=== PATIENT | male | born 1940 | race Caucasian/White ===

== ENCOUNTER 2020-08-21 01:30 | Inpatient (IN) | payer MEDICARE, BC ==
[2020-08-21] MEDS ORDERED: Sodium Chloride 0.9% 10 ML Syringe FLUSH PRN (02:17)
[2020-08-21] MEDS ORDERED: Sodium Chloride 0.9% 1,000 ML IV ONE (02:31)
--- NOTE | 2020-08-21 02:34 | EDM.PDOC ---
ED HPI GENERAL MEDICAL PROBLEM - General Chief Complaint: General Stated Complaint: fever, chills Time Seen by Provider: 08/21/20 02:22 Source of Information: Reports: Patient, [facility] Records History Limitations: Reports: No Limitations - History of Present Illness INITIAL COMMENTS - FREE TEXT/NARRATIVE: Patient presents [place] via [place] with report of fever and lethargy. Reportedly, the [place] called Dr. Tierney to request Tylenol for a temp of 101 and he said to send to the ER. Patient has completed 2 days of 5-day course of Cefuroxime for a UTI. A Covid test from 2 days ago is still pending. He denies any pain, dyspnea, cough, vomiting. He says he lost urine control during the night. He normally is quick-cathed q6h for voiding. - Related Data Allergies Allergy/AdvReac Type Severity Reaction Status Date / Time measles, mumps, and rubella Allergy Cannot Verified 08/21/20 03:09 vaccine Remember NSAIDS (Non-Steroidal Allergy Cannot Verified 08/21/20 03:09 Anti-Inflamma Remember zoster vaccine live Allergy Cannot Verified 08/21/20 03:09 [From Zostavax (PF)] Remember ED ROS GENERAL - Review of Systems Review Of Systems: See Below Constitutional: Reports: Fever. Denies: Chills, Malaise, Weakness HEENT: Denies: Ear Pain, Throat Pain, Vision Change Respiratory: Denies: Shortness of Breath, Cough Cardiovascular: Denies: Chest Pain, Lightheadedness, Syncope GI/Abdominal: Denies: Abdominal Pain, Nausea, Vomiting : Reports: Incontinence, Urinary Retention. Denies: Dysuria, Flank Pain Musculoskeletal: Denies: Neck Pain, Shoulder Pain, Arm Pain, Back Pain, Hand Pain Skin: Denies: Cyanosis, Jaundice, Mottled, Pallor, Diaphoresis Neurological: Denies: Confusion, Dizziness, Headache, Seizure, Syncope, Trouble Speaking Psychiatric: Denies: Agitation, Anxiety, Confusion ED EXAM, GENERAL - Physical Exam Exam: See Below Exam Limited By: No Limitations General Appearance: Alert, WD/WN, No Apparent Distress Eye Exam: Bilateral Eye: EOMI, Normal Inspection, PERRL Ears: Normal External Exam, Hearing Grossly Normal Nose: Normal Inspection, No Blood Throat/Mouth: Normal Inspection, Normal Voice, No Airway Compromise, Other (lips are dry) Head: Atraumatic, Normocephalic Neck: Normal Inspection, Supple, Non-Tender, Full Range of Motion Respiratory/Chest: No Respiratory Distress, Lungs Clear, Normal Breath Sounds, No Accessory Muscle Use. No: Decreased Breath Sounds, Crackles, Rales, Rhonchi, Wheezing, Stridor Cardiovascular: Normal Peripheral Pulses, Regular Rate, Rhythm, No Murmur Peripheral Pulses: 2+: Carotid (L), Carotid (R), Radial (L), Radial (R) GI/Abdominal: Normal Bowel Sounds, Soft, Non-Tender, No Organomegaly, No Distention Back Exam: Normal Inspection, Full Range of Motion. No: CVA Tenderness (L), CVA Tenderness (R) Extremities: Normal Inspection, Normal Range of Motion, Non-Tender, No Pedal Edema Neurological: Alert (sleepy (it's 2:00 AM) but easily rousable and answers questions appropriately), Oriented, Normal Cognition, No Motor/Sensory Deficits Psychiatric: Normal Affect, Normal Mood Skin Exam: Warm, Dry, Intact, Normal Color, No Rash Course - Vital Signs Last Recorded V/S: Last Vital Signs Temp 101.6 F H 08/21/20 02:29 Pulse 93 08/21/20 01:35 Resp 21 H 08/21/20 01:35 BP 125/67 08/21/20 01:35 Pulse Ox 96 08/21/20 01:35 - Orders/Labs/Meds Orders: Active Orders 24 hr Category Date Time Status Patient Status [ADT] Routine ADT 08/21/20 04:06 Ordered Peripheral IV Care [RC] . DIRECTED Care 08/21/20 02:17 Active CXR [Chest 1V Frontal] [CR] Routine Exams 08/21/20 08:00 Ordered CULTURE BLOOD [BC] Stat Lab 08/21/20 04:03 Ordered CULTURE BLOOD [BC] Stat Lab 08/21/20 04:03 Ordered CULTURE URINE [RM] Stat Lab 08/21/20 03:00 Received LACTIC ACID [CHEM] Stat Lab 08/21/20 04:03 Ordered UA RFX MELVA AND CULT IF INDIC [URIN] Stat Lab 08/21/20 02:16 Ordered Ciprofloxacin in D5W [Cipro in D5W 400 MG/200 ML] 400 Med 08/21/20 04:03 Ordered mg Premix Bag 1 bag IV ONETIME Dextrose 50% in Water Med 08/21/20 04:03 Ordered 50 ml IV ASDIRECTED PRN Glucagon,Human Recombinant [GlucaGen] Med 08/21/20 04:03 Ordered 1 mg IM ASDIRECTED PRN Sodium Chloride 0.9% [Saline Flush] Med 08/21/20 02:17 Active 10 ml FLUSH Q8HR PRN Blood Culture x2 Reflex Set [OM.PC] Stat Ot 08/21/20 04:03 Ordered Peripheral IV Insertion Adult [OM.PC] Routine Ot 08/21/20 02:17 Ordered Medication Orders Dextrose/Water (Dextrose 50% In Water) 50 ml IV ASDIRECTED PRN PRN Reason: Hypoglycemia Glucagon (Glucagen) 1 mg IM ASDIRECTED PRN PRN Reason: Hypoglycemia Ciprofloxacin/Dextrose 400 mg/ (Premix) 200 mls @ 200 mls/hr IV ONETIME ONE Stop: 08/21/20 05:02 Sodium Chloride (Saline Flush) 10 ml FLUSH Q8HR PRN PRN Reason: keep vein open Labs: Laboratory Tests 08/21/20 08/21/20 08/21/20 Range/Units 02:12 02:12 03:00 WBC 17.22 H (5.00-10.00) 10^3/uL RBC 3.84 L (4.50-6.00) 10^6/uL Hgb 11.3 L (13.0-17.0) g/dL Hct 33.9 L (40.0-52.0) % MCV 88.3 (82.0-92.0) fL MCH 29.4 (27.0-31.0) pg MCHC 33.3 (32.0-36.0) g/dL RDW 13.7 (11.5-14.5) % Plt Count 249 (150-400) 10^3/uL MPV 8.3 (7.4-10.4) fL Immature Gran % (Auto) 0.8 (0.0-5.0) % Neut % (Auto) 88.4 H (50.0-70.0) % Lymph % (Auto) 5.1 L (20.0-40.0) % [place] % (Auto) 5.6 (2.0-8.0) % Eos % (Auto) 0.0 L (1.0-3.0) % Baso % (Auto) 0.1 (0.0-1.0) % Neut # (Auto) 15.23 H (2.50-7.00) 10^3/uL Lymph # (Auto) 0.88 L (1.00-4.00) 10^3/uL [place] # (Auto) 0.96 H (0.10-0.80) 10^3/uL Eos # (Auto) 0.00 L (0.10-0.30) 10^3/uL Baso # (Auto) 0.01 (0.00-0.10) 10^3/uL Immature Gran # (Auto) 0.14 (0.00-0.50) 10^3/uL Sodium 129 L (136-145) mmol/L Potassium 4.1 (3.3-5.3) mmol/L Chloride 96 L (98-115) mmol/L Carbon Dioxide 25.5 (21.0-32.0) mmol/L Anion Gap 11.6 (5-15) mmol/L BUN 21 (6-25) mg/dL Creatinine 0.68 (0.51-1.17) mg/dL Est Cr Clr Drug Dosing TNP Estimated GFR (MDRD) > 60 mL/min Glucose 272 H (75 - 99) mg/dL Calcium 8.8 (8.7-10.3) mg/dL Total Bilirubin 0.6 (0.2-1.0) mg/dL AST 44 H (15-37) U/L ALT 50 (12-78) U/L Alkaline Phosphatase 160 H (46-116) IU/L Total Protein 6.8 (6.4-8.2) g/dL Albumin 2.29 L (3.00-4.80) g/dL Specimen Type [place] Urine Color Yellow (YELLOW) Urine Appearance Cloudy H (CLEAR) Urine pH 7.5 (5.0-9.0) Ur Specific [place] 1.025 (1.005-1.030) Urine Protein 100 H (NEGATIVE) mg/dL Urine Glucose (UA) 500 H (NEGATIVE) mg/dL Urine Ketones Negative (NEGATIVE) mg/dL Urine Occult Blood Moderate H (NEGATIVE) Urine Nitrite Negative (NEGATIVE) Urine Bilirubin Negative (NEGATIVE) Urine Urobilinogen 0.2 (0.2-1.0) E.U./dL Ur Leukocyte Esterase Small H (NEGATIVE) Urine RBC 0-5 (0-5) /HPF Urine WBC Packed (0-5) /HPF Ur Epithelial Cells Few /LPF Urine Bacteria Many H (NONE TO FEW) /HPF SARS CoV-2 RNA Rapid KEZIA (NEGATIVE) 08/21/20 Range/Units 03:30 WBC (5.00-10.00) 10^3/uL RBC (4.50-6.00) 10^6/uL Hgb (13.0-17.0) g/dL Hct (40.0-52.0) % MCV (82.0-92.0) fL MCH (27.0-31.0) pg MCHC (32.0-36.0) g/dL RDW (11.5-14.5) % Plt Count (150-400) 10^3/uL MPV (7.4-10.4) fL Immature Gran % (Auto) (0.0-5.0) % Neut % (Auto) (50.0-70.0) % Lymph % (Auto) (20.0-40.0) % [place] % (Auto) (2.0-8.0) % Eos % (Auto) (1.0-3.0) % Baso % (Auto) (0.0-1.0) % Neut # (Auto) (2.50-7.00) 10^3/uL Lymph # (Auto) (1.00-4.00) 10^3/uL [place] # (Auto) (0.10-0.80) 10^3/uL Eos # (Auto) (0.10-0.30) 10^3/uL Baso # (Auto) (0.00-0.10) 10^3/uL Immature Gran # (Auto) (0.00-0.50) 10^3/uL Sodium (136-145) mmol/L Potassium (3.3-5.3) mmol/L Chloride (98-115) mmol/L Carbon Dioxide (21.0-32.0) mmol/L Anion Gap (5-15) mmol/L BUN (6-25) mg/dL Creatinine (0.51-1.17) mg/dL Est Cr Clr Drug Dosing Estimated GFR (MDRD) mL/min Glucose (75 - 99) mg/dL Calcium (8.7-10.3) mg/dL Total Bilirubin (0.2-1.0) mg/dL AST (15-37) U/L ALT (12-78) U/L Alkaline Phosphatase (46-116) IU/L Total Protein (6.4-8.2) g/dL Albumin (3.00-4.80) g/dL Specimen Type Urine Color (YELLOW) Urine Appearance (CLEAR) Urine pH (5.0-9.0) Ur Specific [place] (1.005-1.030) Urine Protein (NEGATIVE) mg/dL Urine Glucose (UA) (NEGATIVE) mg/dL Urine Ketones (NEGATIVE) mg/dL Urine Occult Blood (NEGATIVE) Urine Nitrite (NEGATIVE) Urine Bilirubin (NEGATIVE) Urine Urobilinogen (0.2-1.0) E.U./dL Ur Leukocyte Esterase (NEGATIVE) Urine RBC (0-5) /HPF Urine WBC (0-5) /HPF Ur Epithelial Cells /LPF Urine Bacteria (NONE TO FEW) /HPF SARS CoV-2 RNA Rapid KEZIA Negative (NEGATIVE) Meds: Medications Generic Name Dose Route Start Last Admin Trade Name Freq PRN Reason Stop Dose Admin Dextrose/Water 50 ml 08/21/20 04:03 Dextrose 50% In Water IV ASDIRECTED PRN Hypoglycemia Glucagon 1 mg 08/21/20 04:03 Glucagen IM ASDIRECTED PRN Hypoglycemia Ciprofloxacin/Dextrose 400 mg/ 200 mls @ 200 mls/hr 08/21/20 04:03 Premix IV 08/21/20 05:02 ONETIME ONE Sodium Chloride 10 ml 08/21/20 02:17 Saline Flush FLUSH Q8HR PRN keep vein open Discontinued Medications Generic Name Dose Route Start Last Admin Trade Name Freq PRN Reason Stop Dose Admin Sodium Chloride 1,000 mls @ 999 mls/hr 08/21/20 02:31 08/21/20 02:37 Normal Saline IV 08/21/20 03:31 999 mls/hr .BOLUS ONE Administration Insulin Aspart 5 unit 08/21/20 04:03 Novolog SUBCUT 08/21/20 04:04 ONETIME ONE - Re-Assessments/Exams Free Text/Narrative Re-Assessment/Exam: 08/21/20 02:54 WBC is 17 and ANC 15. Will check UA which hadn't done since he already is treating for UTI. 08/21/20 03:26 UA shows UTI and glucosuria. Blood glucose is 272. 08/21/20 04:10 Covid test is negative so we can admit here. Discussed case with Dr. Tierney who accepts for admit. Patient stable. Departure - Departure Time of Disposition: 04:08 Disposition: Admitted As Inpatient 66 Condition: Good Clinical Impression: UTI (urinary tract infection), bacterial, Neutrophilic leukocytosis Fever Qualifiers: Encounter type: initial encounter - Discharge Information Referrals: Mario Anderson MD [Primary Care Provider] - Forms: ED Department Discharge Sepsis Event Note (ED) - Focused Exam Vital Signs: Vital Signs Temp Temp Pulse Resp BP Pulse Ox 08/21/20 02:29 101.6 F H 08/21/20 01:35 98.7 F 93 21 H 125/67 96 - My Orders Last 24 Hours: My Active Orders 08/21/20 02:16 UA RFX MELVA AND CULT IF INDIC [URIN] Stat 08/21/20 02:17 Peripheral IV Care [RC] . DIRECTED Sodium Chloride 0.9% [Saline Flush] 10 ml FLUSH Q8HR PRN Peripheral IV Insertion Adult [OM.PC] Routine 08/21/20 03:00 CULTURE URINE [RM] Stat 08/21/20 04:03 CULTURE BLOOD [BC] Stat CULTURE BLOOD [BC] Stat LACTIC ACID [CHEM] Stat Ciprofloxacin in D5W [Cipro in D5W 400 MG/200 ML] 400 mg Premix Bag 1 bag IV ONETIME Dextrose 50% in Water 50 ml IV ASDIRECTED PRN Glucagon,Human Recombinant [GlucaGen] 1 mg IM ASDIRECTED PRN Blood Culture x2 Reflex Set [OM.PC] Stat 08/21/20 04:06 Patient Status [ADT] Routine 08/21/20 08:00 CXR [Chest 1V Frontal] [CR] Routine - Assessment/Plan Last 24 Hours: My Active Orders 08/21/20 02:16 UA RFX MELVA AND CULT IF INDIC [URIN] Stat 08/21/20 02:17 Peripheral IV Care [RC] . DIRECTED Sodium Chloride 0.9% [Saline Flush] 10 ml FLUSH Q8HR PRN Peripheral IV Insertion Adult [OM.PC] Routine 08/21/20 03:00 CULTURE URINE [RM] Stat 08/21/20 04:03 CULTURE BLOOD [BC] Stat CULTURE BLOOD [BC] Stat LACTIC ACID [CHEM] Stat Ciprofloxacin in D5W [Cipro in D5W 400 MG/200 ML] 400 mg Premix Bag 1 bag IV ONETIME Dextrose 50% in Water 50 ml IV ASDIRECTED PRN Glucagon,Human Recombinant [GlucaGen] 1 mg IM ASDIRECTED PRN Blood Culture x2 Reflex Set [OM.PC] Stat 08/21/20 04:06 Patient Status [ADT] Routine 08/21/20 08:00 CXR [Chest 1V Frontal] [CR] Routine
[2020-08-21 03:02] LABS: ANION GAP 11.6 mmol/L (5-15); CHLORIDE,CL 96 mmol/L (98-115); SODIUM,NA 129 mmol/L (136-145)
[2020-08-21] MEDS ORDERED: Insulin Aspart 100 Units/ML 3 ML Pen SUBCUT ONE ×2 (04:03→06:26)
[2020-08-21] MEDS ORDERED: Ciprofloxacin in D5W 400 MG in Premix Bag 1 BAG IV ONE ×2 (04:03)
[2020-08-21] MEDS ORDERED: Glucagon,Human Recombinant 1 MG Vial IM PRN ×2 (04:03→06:26)
[2020-08-21] MEDS ORDERED: 50% Dextrose in Water 50 ML Syringe IV PRN ×2 (04:03→06:26)
[2020-08-21] MEDS ORDERED: traMADol 50 MG Tab PO PRN ×2 (05:01→08:42)
[2020-08-21] MEDS ORDERED: Sodium Chloride 0.9% 1,000 ML IV SCH (05:15)
[2020-08-21] MEDS ORDERED: Sodium Chloride 0.9% 50 ML IV SCH (05:15)
[2020-08-21] MEDS ORDERED: Non-Formulary Medication 1 Each SUBCUT ONE (05:30)
[2020-08-21] MEDS: Finasteride 5 MG Tab PO SCH (08:05)
[2020-08-21] MEDS: Midodrine 5 MG Tab PO SCH ×2 (08:05→17:18)
--- NOTE | 2020-08-21 08:15 | CR ---
[id number] RAD/RAD Chest PA or AP 1V EXAM: RAD Chest PA or AP 1V INDICATION: FEVER. COMPARISON: None. DISCUSSION: Cardiomediastinal silhouette is normal in size and contour. Small subtle area of opacity projects over the left midlung. Findings nonspecific but in the setting of infection, could represent small area of developing pneumonia. Right lung is clear. Chronic left-sided rib fractures. IMPRESSION: As above. Rodri Martinez MD 08/21/20 0814 Thank you for allowing us to participate in the care of your patient.
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
[2020-08-21] MEDS ORDERED: Docusate Sodium 100 MG Cap PO PRN (08:42)
[2020-08-21] MEDS ORDERED: TACROLIMUS 0.5 MG PO SCH (08:45)
[2020-08-21] MEDS ORDERED: MYCOPHENOLATE MOFETIL 250 MG PO SCH (08:45)
[2020-08-21] MEDS ORDERED: ERGOCALCIFEROL PO SCH (08:45)
[2020-08-21] MEDS ORDERED: Docusate Sodium 100 MG Cap PO SCH (09:00)
[2020-08-21] MEDS ORDERED: INSULIN DEGLUDEC 22 UNIT SQ SCH (09:00)
[2020-08-21] MEDS ORDERED: Tamsulosin 0.4 MG Cap.ER PO SCH ×4 (09:00→09:05)
[2020-08-21] MEDS ORDERED: Finasteride 5 MG Tab PO SCH (09:00)
[2020-08-21] MEDS: TACROLIMUS 0.5 MG PO SCH ×2 (09:57→21:12)
[2020-08-21] MEDS: INSULIN DEGLUDEC SUBCUT SCH (09:57)
[2020-08-21] MEDS: Aspirin 81 MG Tab.EC PO SCH (09:58)
[2020-08-21] MEDS: Potassium Chloride 10 MEQ Tab.ER PO SCH ×2 (09:58→21:04)
[2020-08-21] MEDS: MYCOPHENOLATE 250 MG PO SCH ×2 (09:58→21:04)
[2020-08-21] MEDS: cefTRIAXone 1 GM Vial IVPUSH SCH (12:42)
[2020-08-21] MEDS: Acetaminophen 500 MG Tab PO PRN ×2 (14:54→21:17)
[2020-08-21] MEDS: Calcium Carbonate 600 MG Tab PO SCH (17:18)
[2020-08-21] MEDS: Cholecalciferol (Vitamin D3) 25 MCG Tab PO SCH (17:19)
[2020-08-21] MEDS ORDERED: Midodrine 5 MG Tab PO SCH (17:30)
[2020-08-21] MEDS ORDERED: Warfarin 2.5 MG Tab PO ONE ×2 (18:00)
[2020-08-21] MEDS ORDERED: Warfarin 5 MG Tab PO SCH (18:00)
[2020-08-21] MEDS ORDERED: Warfarin 2.5 MG Tab PO SCH ×3 (18:00)
[2020-08-22] MEDS: Sodium Chloride 0.9% 1,000 ML IV SCH ×3 (00:56→17:17)
[2020-08-22] MEDS: Acetaminophen 500 MG Tab PO PRN ×2 (06:02→16:24)
[2020-08-22] MEDS: Midodrine 5 MG Tab PO SCH ×3 (06:03→18:53)
[2020-08-22] MEDS: TACROLIMUS 0.5 MG PO SCH ×2 (08:26→21:46)
[2020-08-22] MEDS: INSULIN DEGLUDEC SUBCUT SCH (08:27)
[2020-08-22] MEDS: MYCOPHENOLATE 250 MG PO SCH ×2 (08:27→21:47)
[2020-08-22] MEDS: Finasteride 5 MG Tab PO SCH (08:28)
[2020-08-22] MEDS: Potassium Chloride 10 MEQ Tab.ER PO SCH ×2 (08:28→21:46)
[2020-08-22] MEDS: Tamsulosin 0.4 MG Cap.ER PO SCH (08:28)
[2020-08-22] MEDS: Calcium Carbonate 600 MG Tab PO SCH ×2 (08:28→18:44)
[2020-08-22] MEDS: Aspirin 81 MG Tab.EC PO SCH (08:28)
[2020-08-22] MEDS: Magnesium Oxide 500 MG Tab PO SCH ×2 (08:28→21:50)
[2020-08-22] MEDS: Cholecalciferol (Vitamin D3) 25 MCG Tab PO SCH ×2 (08:29→18:44)
[2020-08-22 08:36] LABS: ANION GAP 12.2 mmol/L (5-15); CHLORIDE,CL 100 mmol/L (98-115); SODIUM,NA 134 mmol/L (136-145)
[2020-08-22] MEDS ORDERED: Warfarin 5 MG Tab PO SCH ×2 (08:42→18:00)
[2020-08-22 09:02] LABS: HEMOGLOBIN A1C 6.7 % (4.3-5.7)
[2020-08-22] MEDS: cefTRIAXone 1 GM Vial IVPUSH SCH (11:54)
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
[2020-08-22] MEDS ORDERED: 50% Dextrose in Water 50 ML Syringe IV PRN (13:53)
[2020-08-22] MEDS ORDERED: Glucagon,Human Recombinant 1 MG Vial IM PRN (13:53)
[2020-08-22] MEDS: Piperacillin/Tazobactam/Dext 3.375 GM in Premix Bag 1 BAG IV SCH ×2 (17:20→21:59)
[2020-08-22] MEDS ORDERED: Warfarin 2.5 MG Tab PO ONE (18:00)
[2020-08-22 18:38] LABS: ANION GAP 17.4 mmol/L (5-15); CHLORIDE,CL 95 mmol/L (98-115); SODIUM,NA 131 mmol/L (136-145)
[2020-08-22] MEDS ORDERED: Sodium Chloride 0.9% 500 ML ONE (18:56)
[2020-08-22] MEDS ORDERED: Lidocaine 2% 100 MG/5 ML Syringe IVPUSH PRN (19:00)
[2020-08-22] MEDS ORDERED: EPINEPHrine 1:10,000 1 MG/10 ML Syringe IVPUSH PRN (19:00)
[2020-08-22] MEDS: Insulin Aspart 100 Units/ML 3 ML Pen SUBCUT SCH (19:00)
[2020-08-22] MEDS ORDERED: Nitroglycerin 0.4 MG Tab.SL SL PRN (19:00)
[2020-08-22] MEDS ORDERED: Atropine 0.1 MG/ML 10 ML Syringe IVPUSH PRN (19:00)
[2020-08-22] MEDS: Nystatin Topical Powder 15 GM Bottle TOP PRN (21:55)
[2020-08-23] MEDS: Sodium Chloride 0.9% 1,000 ML IV SCH ×2 (01:24→11:38)
[2020-08-23] MEDS: Magnesium Oxide 500 MG Tab PO SCH ×2 (02:34→08:49)
[2020-08-23] MEDS: Piperacillin/Tazobactam/Dext 3.375 GM in Premix Bag 1 BAG IV SCH ×2 (05:30→11:38)
[2020-08-23] MEDS: Nystatin Topical Powder 15 GM Bottle TOP PRN (05:53)
[2020-08-23 07:47] LABS: ANION GAP 10.8 mmol/L (5-15); CHLORIDE,CL 100 mmol/L (98-115); SODIUM,NA 132 mmol/L (136-145)
[2020-08-23] MEDS: Midodrine 5 MG Tab PO SCH (07:56)
[2020-08-23] MEDS: Insulin Aspart 100 Units/ML 3 ML Pen SUBCUT SCH (08:47)
[2020-08-23] MEDS: Calcium Carbonate 600 MG Tab PO SCH (08:49)
[2020-08-23] MEDS: Cholecalciferol (Vitamin D3) 25 MCG Tab PO SCH (08:49)
[2020-08-23] MEDS: Tamsulosin 0.4 MG Cap.ER PO SCH (08:49)
[2020-08-23] MEDS: Finasteride 5 MG Tab PO SCH (08:49)
[2020-08-23] MEDS: Aspirin 81 MG Tab.EC PO SCH (08:49)
[2020-08-23] MEDS: Potassium Chloride 10 MEQ Tab.ER PO SCH (08:49)
[2020-08-23] MEDS: TACROLIMUS 0.5 MG PO SCH (08:50)
[2020-08-23] MEDS: MYCOPHENOLATE 250 MG PO SCH (08:50)
[2020-08-23] MEDS ORDERED: INSULIN DEGLUDEC SUBCUT SCH (09:00)
[2020-08-23] MEDS ORDERED: Patient's Own Medication 1 Each SUBCUT SCH (09:00)
[2020-08-23] MEDS ORDERED: Diatrizoate Meglumine/Diatrizoate Sodium 37% 30 ML Bottle PO ONE (11:23)
[2020-08-23] MEDS ORDERED: Iopamidol 755 Mg/ML 100 ML Bottle IV ONE (11:23)
[2020-08-23] MEDS ORDERED: Sodium Chloride 0.9% 50 ML IV SCH (11:30)
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
[2020-08-23] MEDS ORDERED: Sodium Chloride 0.9% 1,000 ML IV SCH (11:54)
[2020-08-23] MEDS ORDERED: Magnesium Oxide 500 MG Tab PO SCH (12:00)
--- NOTE | 2020-08-23 13:08 | CT ---
[id number] CT/CT Abdomen Pelvis W IV EXAM: CT Abdomen Pelvis W IV CLINICAL DATA: ELEVATED WHITE BLOOD CELL COUNT FEVER COMPARISON: NO PREVIOUS SIMILAR EXAM IS AVAILABLE. 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 Question is raised if the patient has had recent surgery After discussion with the referring medical care provider, there is no history of recent surgery The pelvis shows no mass or adenopathy There is no pelvic abscess There appears to be hydronephrosis of the right kidney. The appendix appears normal The appendix is seen on image 98, series 2 The pilot station kidneys are atrophic There is moderate gastric distention The gallbladder is not distended The liver and spleen, adrenals, aorta, and pancreas show no acute abnormalities The mesenteric vessels demonstrate normal enhancement There is no free fluid or free air There is otherwise no bowel obstruction There is a small hiatal hernia. 

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
== END 2020-08-23 15:12 | DRG 728 ==
LOC: KA.ED 01:30 → KA.MS 04:06 → UNDOADMIN 04:42 → KA.MS 04:42 → UNDODISIN 08-23 15:12
PROVIDERS: ADMIT Family Medicine; ATTEND Family Medicine
DX: N49.3 Fournier gangrene (principal); D72.828 Other elevated white blood cell count; Z88.7 Allergy status to serum and vaccine; Z88.8 Allergy status to other drugs, medicaments and biological substances; N39.0 Urinary tract infection, site not specified; E87.1 Hypo-osmolality and hyponatremia; I31.3 Pericardial effusion (noninflammatory); Z94.0 Kidney transplant status; N25.81 Secondary hyperparathyroidism of renal origin; Z79.82 Long term (current) use of aspirin; Z79.4 Long term (current) use of insulin; Z79.01 Long term (current) use of anticoagulants; Z79.899 Other long term (current) drug therapy; Z87.01 Personal history of pneumonia (recurrent); N31.9 Neuromuscular dysfunction of bladder, unspecified; N40.1 Benign prostatic hyperplasia with lower urinary tract symptoms; R33.8 Other retention of urine; R74.01 Elevation of levels of liver transaminase levels; R74.8 Abnormal levels of other serum enzymes; E83.42 Hypomagnesemia; D64.9 Anemia, unspecified; I25.10 Atherosclerotic heart disease of native coronary artery without angina pectoris; I48.0 Paroxysmal atrial fibrillation; I95.1 Orthostatic hypotension; Z86.718 Personal history of other venous thrombosis and embolism; Z86.711 Personal history of pulmonary embolism; E11.9 Type 2 diabetes mellitus without complications; M81.0 Age-related osteoporosis without current pathological fracture; E87.6 Hypokalemia; Z85.828 Personal history of other malignant neoplasm of skin; Z96.1 Presence of intraocular lens; R29.810 Facial weakness; Z20.828 Contact with and (suspected) exposure to other viral communicable diseases
CPT/HCPCS: 36415; 36416; 51702; 71045; 74177; 80053; 81001; 82962; 83036; 83605; 83735; 84145; 85025; 85610; 86140; 87040; 87077; 87086; 99284; 99285; A9270-GY; J0696; J0744; J1815-GY; J2543; J3370; J7030; J7040; J7050; Q9963; Q9967; U0002